=== PATIENT | female | born 1995 | race Caucasian/White ===

== ENCOUNTER 2017-10-18 07:14 | Observation (INO) | payer OTHER ==
[2017-10-18 08:21] LABS: #Eosinphils 0.1 thou/uL (0.0-0.7); #Lymphocytes 1.6 thou/uL (1.20-3.40); #Monocytes 0.5 thou/uL (0.11-0.59); #Neutrophils 5.5 thou/uL (1.40-6.50); %Basophils 0.6 % (0.0-1.0); %Eosinophils 1.8 % (0.0-10.0); %Lymphocytes 20.6 % (21.0-51.0); %Monocytes 5.8 % (0.0-10.0); %Neutrophils 71.1 % (42.0-75.0); Hemoglobin 14.7 g/dL (12.0-16.0); Mean Corpuscular HGB CONC 33.2 g/dL (32.0-36.0); Mean Corpuscular Hemoglobin 29.6 pg (27.0-31.0); Mean Corpuscular Volume 89.1 fL (78.0-98.0); Mean Platelet Volume 7.2 fL (7.4-10.4); Platelet Count 257 thou/uL (130-400); RBC Distribution Width 12.2 % (11.5-14.5); Red Blood Cell (RBC) Count 4.98 mill/uL (4.20-5.40); White Blood Cell (WBC) Count 7.7 thou/uL (4.8-10.8)
[2017-10-18 08:54] LABS: ALT (SGPT) 13 U/L (8-55); AST (SGOT) 14 U/L (5-34); Albumin 4.5 g/dL (3.5-5.0); Alkaline Phosphatase 83 U/L (40-150); Anion Gap 12 mmol/L (10-20); BUN (Urea Nitrogen) 11 mg/dL (7.0-18.7); Bilirubin, Total 0.5 mg/dL (0.2-1.2); Calc. Creatinine Clearance 0 mL/min (70-130); Calcium 9.5 mg/dL (7.8-10.44); Carbon Dioxide 25 mmol/L (22-29); Chloride 105 mmol/L (98-107); Estimated GFR-MDRD 70; Globulin 3.3 g/dL (2.4-3.5); Glucose 86 mg/dL (70-105); Potassium 3.9 mmol/L (3.5-5.1); Protein, Total 7.8 g/dL (6.0-8.3); Sodium 138 mmol/L (136-145)
[2017-10-18 09:44] LABS: BHCG - Serum Negative (NEGATIVE); Pregs Control Background? CLEAR/WHITE (CLR/WHITE); Pregs Control Bar Appear? YES (CONTROL BAR)
[2017-10-18] MEDS ORDERED: Acetaminophen 325 MG TAB PO PRN (10:55)
[2017-10-18] MEDS ORDERED: Ondansetron HCl/PF 4 MG/2 ML Vial IVP PRN (10:55)
--- NOTE | 2017-10-18 10:58 | PDOC.FPRHP ---
- History of Present Illness Chief Complaint: syncope History of Present Illness: Karina Irene is a 21 year old female with a PMH of anxiety who presented to the ED after a syncopal event. Patient woke up this morning and was feeling her normal self. She went to take a shower and while showering, she because acutely anxious, started breathing fast and crying and all of a sudden her vision went black. The next the she remembers is waking up with her looking over her. This fall was witnessed by her and he denies see any seizure like activity and states that the patient fell forward into the wall of the shower and slumped down, she did not hit her head. Patient denies any bowel or bladder incontinence, denies biting tongue. She states that this has never happened before in the past. Does state that she has had more stress and anxiety in her life over the last several months because her mother was diagnosed with pancreatic cancer and . Denies any fever, chills, night sweats, chest pain, palpitations, n/v/d/c, abdominal pain. ED Course: In the ED, she received 1 L NS. - Allergies/Adverse Reactions Allergies Allergy/AdvReac Type Severity Reaction Status Date / Time No Known Drug Allergies Allergy Verified 10/18/17 11:29 - Home Medications Medication Instructions Recorded Confirmed Type Phentermine HCl 37.5 mg PO DAILY 10/18/17 10/18/17 History - History PMHx: Anxiety, Ance PSHx: None FHx: Pancreatic cancer Social: Patient denies smoking or illicit drugs, denies excessive alcohol intake - Review of Systems General: denies: fever/chills, weight/appetite/sleep changes, night sweats, fatigue Eyes: reports: vision changes (vision went black). denies: eye pain ENT: denies: nasal congestion, rhinorrhea Respiratory: denies: cough, congestion, shortness of breath, exercise intolerance Cardiovascular: denies: chest pain, palpitation, edema, paroxysmal nocturnal dyspnea, orthopnea Gastrointestinal: denies: nausea, vomiting, diarrhea, constipation, abdominal pain, GI bleeding Genitourinary: denies: incontinence, dysuria, polyuria, discharge Skin: denies: rashes, lesions, jaundice Musculoskeletal: denies: pain, tenderness, stiffness Neurological: reports: syncope. denies: numbness, seizure, weakness Psychological: reports: anxiety. denies: depression - Vital signs BP: 114/74 HR: 74 RR: 16 Tmax: 97.8 Pox: 97% on RA Wt: 92 kg - Physical Exam Constitutional: NAD, awake, alert and oriented, well developed HEENT: normocephalic and atraumatic, PERRLA, EOMI, conjunctiva clear, no scleral icterus, grossly normal vision, TM's clear and intact, grossly normal hearing, normal nasal mucosa, MMM, oropharynx clear, good dention Neck: supple, FROM, trachea midline, no LAD, no JVD Chest: no-tender to palpation, no lesions Heart: RRR, normal S1/S2, no murmurs/rubs/gallops Lungs: CTAB, no respiratory distress, good air movement, no rales/rhonchi, no wheezing, no retractions Abdomen: soft, non-tender, bowel sounds present, no masses/distention Musculoskeletal: normal structure, normal tone, ROM grossly normal Neurological: no focal deficit, CN II-XII intact Skin: no rash/lesions, good turgor, capillary refill <2 seconds Heme/Lymphatic: no unusual bruising or bleeding, no purpura, no petechia Psychiatric: normal mood and affect, good judgment and insight, intact recent and remote memory FMR H&P: Results - Labs Result Diagrams: 10/18/17 08:13 10/18/17 08:13 Lab results: WBC 7.7 thou/uL (4.8-10.8) 10/18/17 08:13 Hgb 14.7 g/dL (12.0-16.0) 10/18/17 08:13 Hct 44.3 % (36.0-47.0) 10/18/17 08:13 MCV 89.1 fL (78.0-98.0) 10/18/17 08:13 Plt Count 257 thou/uL (130-400) 10/18/17 08:13 Neutrophils % 71.1 % (42.0-75.0) 10/18/17 08:13 Sodium 138 mmol/L (136-145) 10/18/17 08:13 Potassium 3.9 mmol/L (3.5-5.1) 10/18/17 08:13 Chloride 105 mmol/L (98-107) 10/18/17 08:13 Carbon Dioxide 25 mmol/L (22-29) 10/18/17 08:13 BUN 11 mg/dL (7.0-18.7) 10/18/17 08:13 Creatinine 0.99 mg/dL (0.6-1.1) 10/18/17 08:13 Glucose 86 mg/dL (70-105) 10/18/17 08:13 Calcium 9.5 mg/dL (7.8-10.44) 10/18/17 08:13 Total Bilirubin 0.5 mg/dL (0.2-1.2) 10/18/17 08:13 AST 14 U/L (5-34) 10/18/17 08:13 ALT 13 U/L (8-55) 10/18/17 08:13 Alkaline Phosphatase 83 U/L (40-150) 10/18/17 08:13 Serum Total Protein 7.8 g/dL (6.0-8.3) 10/18/17 08:13 Albumin 4.5 g/dL (3.5-5.0) 10/18/17 08:13 - EKG Interpretation EKG: NSR FMR H&P: A/P - Problem List (1) Syncope and collapse Current Visit: Yes Status: Acute Code(s): R55 - SYNCOPE AND COLLAPSE (2) LUIS FERNANDO (acute kidney injury) Current Visit: Yes Status: Acute Code(s): N17.9 - ACUTE KIDNEY FAILURE, UNSPECIFIED (3) Anxiety Current Visit: Yes Status: Chronic Code(s): F41.9 - ANXIETY DISORDER, UNSPECIFIED (4) Acne Current Visit: Yes Status: Chronic Code(s): L70.9 - ACNE, UNSPECIFIED - Plan 1) Syncopal Event: vasovagal vs orthostasis - Place on Tele/Obs - Positive orthostatics in the ED - Low suspicion for seizure with history - Starting fluid replacement with NS @ 150 ml/hr, s/p 1 L NS in ED - Recheck CBC, BMP and orthostatics in AM 2) LUIS FERNANDO-mild - Fluid replacement - Recheck BMP in AM 3) Anxiety: - Could be contributing to symptoms - consider starting SSRI - will not OP f/u 4) Acne - started on doxycycline yesterday - hold for the time CODE STATUS: FULL CODE Disposition/LOS: Place on Tele Obs, anticipate discharge home after stay <48 hours FMR H&P: Upper Level - Pertinent history 21 yo F pmhx JAYLYN, NELSON, and obesity p/w syncopal episode this morning in the shower. Witnessed by . Says that she just slumped over, no head trauma. [place] nauseous and like her vision was going dark prior to episode. No seizure type activity. No incontinence. No neurological deficits. No history of previous episodes. No history of recent illness or other reason for dehydration. States that she had a very stressful day yesterday and has had increased levels of anxiety lately. Her mother recently passed from pancreatic cancer. - Pertinent findings PE Gen: obese, NAD CV: RRR, no m/g/r Lungs: CTAB Ext: no c/c/e Neuro: no focal deficits, CN's 2-12 intact Pulses: BLE intact - Plan Date/Time: 10/18/17 1013 I, Andrés Tyson MD, have evaluated this patient and agree with findings/plan as outlined by internal sales resident. Pertinent changes/additions are listed here. 21 yo CF w/: 1) Syncopal episode: place in observation to telemetry for cardiac monitoring. Likely vasovagal v. orthostatic etiology. EKG normal with exception of elevated QTc. Orthostatics abnl in ER - IVF rehydration and recheck in AM but also suspect strong element of anxiety playing a role here. 2) H/o NELSON: consider starting prophylactics 3) Generalized anxiety disorder: consider starting SSRI 4) Mild LUIS FERNANDO: should improve with fluids, recheck BMP in AM Attending Addendum - Attending Addendum Date/Time: 10/18/17 5980 I personally evaluated the patient and discussed the management with Dr. Brown I agree with the History, Examination, Assessment and Plan documented above with any addition or exceptions noted below.Patient with syncopal episode this am witnessed by in shower at home no head trauma, no seizure activity noted. Patient with orthostasis noted in ER admit for observation hydration and expectant management.
[2017-10-18 12:49] VITALS: BMI 25.2
[2017-10-18] MEDS: Sodium Chloride 0.9% 1,000 ML IV SCH ×2 (12:50→20:47)
[2017-10-19 04:56] LABS: #Eosinphils 0.1 thou/uL (0.0-0.7); #Lymphocytes 2.7 thou/uL (1.20-3.40); #Monocytes 0.6 thou/uL (0.11-0.59); #Neutrophils 5.1 thou/uL (1.40-6.50); %Basophils 0.5 % (0.0-1.0); %Eosinophils 1.6 % (0.0-10.0); %Lymphocytes 30.8 % (21.0-51.0); %Monocytes 7.4 % (0.0-10.0); %Neutrophils 59.6 % (42.0-75.0); Hemoglobin 13.4 g/dL (12.0-16.0); Mean Corpuscular HGB CONC 32.2 g/dL (32.0-36.0); Mean Corpuscular Hemoglobin 28.9 pg (27.0-31.0); Mean Corpuscular Volume 89.8 fL (78.0-98.0); Mean Platelet Volume 7.2 fL (7.4-10.4); Platelet Count 234 thou/uL (130-400); RBC Distribution Width 12.3 % (11.5-14.5); Red Blood Cell (RBC) Count 4.64 mill/uL (4.20-5.40); White Blood Cell (WBC) Count 8.6 thou/uL (4.8-10.8)
[2017-10-19 05:08] LABS: Anion Gap 9 mmol/L (10-20); BUN (Urea Nitrogen) 9 mg/dL (7.0-18.7); Calc. Creatinine Clearance 114 mL/min (70-130); Calcium 8.8 mg/dL (7.8-10.44); Carbon Dioxide 23 mmol/L (22-29); Chloride 111 mmol/L (98-107); Estimated GFR-MDRD 88; Glucose 91 mg/dL (70-105); Potassium 4.1 mmol/L (3.5-5.1); Sodium 139 mmol/L (136-145)
[2017-10-19] MEDS: Sodium Chloride 0.9% 1,000 ML IV SCH ×2 (05:29→06:44)
--- NOTE | 2017-10-19 06:55 | PDOC.FM ---
- Subjective Subjective: Karina Irene seen at bedside this morning. She denies any acute events overnight. She denies any complaints this morning. She denies any fever, chills, chest pain, palpitations. - Objective MAR Reviewed: Yes Vital Signs & Weight: Vital Signs (12 hours) Temp Pulse Resp BP BP BP BP 10/19/17 04:47 98.0 F 91 16 117/58 L 10/18/17 22:51 97.8 F 71 15 119/66 123/74 113/62 10/18/17 19:38 98.2 F 74 16 10/18/17 19:35 97.3 F L 82 12 114/68 Pulse Ox 10/19/17 04:47 98 10/18/17 22:51 99 10/18/17 19:38 10/18/17 19:35 100 Weight Weight 66.678 kg I&O: 10/17/17 10/18/17 10/19/17 06:59 06:59 06:59 Intake Total 2030 Output Total 0 Balance 2030 Result Diagrams: 10/19/17 04:35 10/19/17 04:35 <Jorge Luis Brown - Last Filed: 10/19/17 07:54> - Objective Vital Signs & Weight: Vital Signs (12 hours) Temp Pulse Resp BP BP BP Pulse Ox 10/19/17 08:00 97.9 F 81 16 10/19/17 07:49 97.9 F 81 16 120/56 L 100 10/19/17 04:47 98.0 F 91 16 117/58 L 98 10/18/17 22:51 97.8 F 71 15 119/66 123/74 113/62 99 Weight Weight 66.678 kg I&O: 10/18/17 10/19/17 10/20/17 06:59 06:59 06:59 Intake Total 2030 Output Total 0 Balance 2030 Result Diagrams: 10/19/17 04:35 10/19/17 04:35 <Daniel Gonzáles - Last Filed: 10/19/17 10:37> Phys Exam - Physical Examination Constitutional: NAD HEENT: moist MMs, sclera anicteric Neck: no JVD, supple, full ROM Respiratory: no wheezing, no rales, no rhonchi, clear to auscultation bilateral Cardiovascular: RRR, no significant murmur Gastrointestinal: soft, non-tender Musculoskeletal: no edema, pulses present Neurological: non-focal, normal sensation, moves all 4 limbs Psychiatric: normal affect, A&O x 3 Skin: no rash <Jorge Luis Brown - Last Filed: 10/19/17 07:54> Dx/Plan (1) Syncope and collapse Code(s): R55 - SYNCOPE AND COLLAPSE Status: Acute (2) LUIS FERNANDO (acute kidney injury) Code(s): N17.9 - ACUTE KIDNEY FAILURE, UNSPECIFIED Status: Acute (3) Anxiety Code(s): F41.9 - ANXIETY DISORDER, UNSPECIFIED Status: Chronic (4) Acne Code(s): L70.9 - ACNE, UNSPECIFIED Status: Chronic - Plan Plan: 1) Syncopal Event: vasovagal vs orthostasis - Positive orthostatics in the ED - Low suspicion for seizure with history - Starting fluid replacement with NS @ 150 ml/hr, s/p 1 L NS in ED - Normal labs this morning 2) LUIS FERNANDO-mild - Fluid replacement - Recheck BMP in AM 3) Anxiety: - Could be contributing to symptoms - consider starting SSRI - will not OP f/u 4) Acne - started on doxycycline yesterday - hold for the time <Jorge Luis Brown - Last Filed: 10/19/17 07:54> (1) Syncope and collapse Code(s): R55 - SYNCOPE AND COLLAPSE Status: Acute (2) LUIS FERNANDO (acute kidney injury) Code(s): N17.9 - ACUTE KIDNEY FAILURE, UNSPECIFIED Status: Acute (3) Anxiety Code(s): F41.9 - ANXIETY DISORDER, UNSPECIFIED Status: Chronic (4) Acne Code(s): L70.9 - ACNE, UNSPECIFIED Status: Chronic <Daniel Gonzáles - Last Filed: 10/19/17 10:37> Attending Addendum - Attending Addendum Date/Time: 10/19/17 1036 I personally evaluated the patient and discussed the management with Dr. Brown I agree with the History, Examination, Assessment and Plan documented above with any addition or exceptions noted below.Feeling better home today further evaluation as outpatient regard starting SSRI for anxiety patient prefer to wait at this time. <Daniel Gonzáles - Last Filed: 10/19/17 10:37>
[2017-10-19 08:26] VITALS: BP 120/56; TEMP 97.9
--- NOTE | 2017-10-19 14:23 | EKG ---
Test Reason : SYNCOPE Blood Pressure : / mmHG Vent. Rate : 080 BPM Atrial Rate : 080 BPM P-R Int : 124 ms QRS Dur : 082 ms QT Int : 410 ms P-R-T Axes : -13 048 037 degrees QTc Int : 472 ms Normal sinus rhythm with sinus arrhythmia Normal ECG Confirmed by SISSY JOHNSON, PRESLEY ([id number]), newspaper editor managing LOYDA RODRIGUEZ ([id number]) on 10/19/2017 2:23:18 PM Referred By: SISSY Confirmed By:PRESLEY SHEEHAN MD
--- NOTE | 2017-10-19 22:53 | DIS-2 ---
DATE OF ADMISSION: 10/18/2017 DATE OF DISCHARGE: 10/19/2017 RESIDENT: Jorge Luis Brown M.D. ADMITTING ATTENDING: Dr. Daniel Gonzáles. DISCHARGE ATTENDING: Dr. Daniel Gonzáles. CONSULTATIONS: None. PROCEDURES: None. PRIMARY DIAGNOSES: Syncope and collapse. SECONDARY DIAGNOSES: 1. Anxiety. 2. Acute kidney injury. 3. Acne. DISCHARGE MEDICATIONS: Resume home medications includin. Phentermine 37.5 mg p.o. daily. 2. Doxycycline hyclate 125 mg p.o. b.i.d. HISTORY OF PRESENT ILLNESS AND HOSPITAL COURSE: Karina Echavarria is a 21-year-old female with past me dical history of anxiety, who presented to the ED after syncopal event. Patient woke up at the [facility] of admission stating that she was feeling her normal self. She would take a shower. While shower ing, she became acutely anxious started breathing fast and crying. All of the sudden, her vision lloyd t black. The next thing, she remembers is waking up with her looking over her. The fall was witnessed by her . She denies any seizure-like activity and states that the patient fell for leos into the wall of the shower and slumped down, she did not hit her head. Patient denies any leobardo l or bladder incontinence and denies any tongue biting. States that this has never happened before i n the past. She does state that she has had more anxiety lately in her life due to her mother from pancreatic cancer. Patient denied any fever, chills, night sweats, chest pain, palpitatio ns, nausea, vomiting, diarrhea, constipation, abdominal pain. In the ED, she received one liter of n ormal saline. Vitals on admission were blood pressure 114/74, heart rate 74, respiratory rate 16, te mperature 97.8, pulse ox 97% on room air. In the ED, patient had positive orthostatics prior to rece iving fluids. Initial labs reveal white blood cell count 7.7, hemoglobin 14.7, hematocrit 44.3, plat elets 275. Serum test was negative. Sodium was 138, potassium 3.9, chloride 105, bicarbon ate 25, BUN 11, creatinine 0.99. EKG showed normal sinus rhythm. Patient was admitted for a syncopa l event placed on tele obs. A syncopal event was likely vasovagal in etiology versus orthostasis. P atient have positive orthostatics in the ED and those were normal after she received one liter of nor mal saline and was placed on normal saline at 150 mL an hour. Patient's anxiety could also be contri buting to her symptoms. She did state that she has been much more anxious lately, and there will be periods of time where she becomes acutely anxious and starts breathing more quickly and may be even c rying. Patient did well overnight and had no recurrence of any symptoms. Patient was cleared for elaine collins on 10/19/2017 with instructions to follow up with her primary care provider, Dr. Gonzáles. Nathalie ent understood the plan and was in agreement. DISPOSITION: Stable. After discussion with Dr. Gonzáles, patient is likely consider starting treatment for anxiety, as there could have been a component of anxiety leading to this event; however, patient was volume down, so we did recommend that she continues drinking plenty of fluids. DISCHARGE INSTRUCTIONS: 1. Location: Home. 2. Diet: Regular. 3. Activity: As tolerated. 4. Follow up with primary care provider, Dr. Gonzáles within 1 week.
== END 2017-10-19 11:58 | disposition home or self-care (01) ==
LOC: ERS 07:14 → 2SW 12:28
PROVIDERS: ADMIT Family Medicine; ATTEND Family Medicine
DX: R55 Syncope and collapse (principal); F41.1 Generalized anxiety disorder; N17.9 Acute kidney failure, unspecified; L70.9 Acne, unspecified; Z79.899 Other long term (current) drug therapy
CPT/HCPCS: 36415; 80048; 80053; 84703; 85025; 93005; 96360; 96361; G0378

== ENCOUNTER 2018-04-17 21:13 | Emergency (ER) | payer OTHER ==
[2018-04-17 21:59] LABS: #Eosinphils 0.1 thou/uL (0.0-0.7); #Lymphocytes 1.9 thou/uL (1.20-3.40); #Monocytes 0.5 thou/uL (0.11-0.59); #Neutrophils 7.3 thou/uL (1.40-6.50); %Basophils 0.4 % (0.0-1.0); %Eosinophils 0.7 % (0.0-10.0); %Lymphocytes 19.1 % (21.0-51.0); %Monocytes 4.9 % (0.0-10.0); %Neutrophils 74.9 % (42.0-75.0); Hemoglobin 13.7 g/dL (12.0-16.0); Mean Corpuscular HGB CONC 34.2 g/dL (32.0-36.0); Mean Corpuscular Hemoglobin 30.7 pg (27.0-31.0); Mean Corpuscular Volume 89.8 fL (78.0-98.0); Mean Platelet Volume 7.5 fL (7.4-10.4); Platelet Count 233 thou/uL (130-400); RBC Distribution Width 11.6 % (11.5-14.5); Red Blood Cell (RBC) Count 4.46 mill/uL (4.20-5.40); White Blood Cell (WBC) Count 9.7 thou/uL (4.8-10.8)
[2018-04-17 21:59] LABS: Bilirubin Negative (Negative); Blood, Urine Large (Negative); Clarity CLEAR (Clear); Glucose, Urine (Dipstick) Negative (Negative); Leukocyte Trace (Negative); Nitrite Negative (Negative); Protein, Urine (Dipstick) Negative (Neg-Trace); Urobilinogen 0.2 mg/dL (0.2-1.0)
[2018-04-17 22:00] LABS: Hyaline Casts/LPF 0-3 HYALINE CAST LPF (0-3 Hyaline); Specific Gravity, Urine 1.004 (1.002-1.036); Squamous Epithelial 0-3 HPF (0-3); WBC/HPF 0-3 HPF (0-3)
[2018-04-17 22:01] LABS: Pregnancy Test - Urine (BHCG) POSITIVE (Negative); Pregu Control Background? CLEAR/WHITE (CLR/WHITE); Pregu Control Bar Appear? YES (CONTROL BAR); Specific Gravity 1.004 (1.002-1.036)
[2018-04-17 22:09] LABS: Bacteria/HPF 1+ HPF (None Seen); RBC/HPF 0-3 HPF (0-3)
[2018-04-17 22:21] LABS: ALT (SGPT) 18 U/L (8-55); AST (SGOT) 16 U/L (5-34); Albumin 4.2 g/dL (3.5-5.0); Alkaline Phosphatase 79 U/L (40-150); Anion Gap 10 mmol/L (10-20); BUN (Urea Nitrogen) 7 mg/dL (7.0-18.7); Bilirubin, Total 0.3 mg/dL (0.2-1.2); Calc. Creatinine Clearance 0 mL/min (70-130); Calcium 9.3 mg/dL (7.8-10.44); Carbon Dioxide 26 mmol/L (22-29); Chloride 105 mmol/L (98-107); Estimated GFR-MDRD 89; Globulin 3.1 g/dL (2.4-3.5); Glucose 101 mg/dL (70-105); Potassium 3.7 mmol/L (3.5-5.1); Protein, Total 7.3 g/dL (6.0-8.3); Sodium 137 mmol/L (136-145)
--- NOTE | 2018-04-17 23:20 | ULT ---
OB ULTRASOUND 04/17/18 COMPARISON: None. HISTORY: Light vaginal bleeding for two hours. patient. TECHNIQUE: Multiplanar ruelas scale and color doppler images were obtained in a transabdominal /pelvic ultras ound. Spectral analysis of the doppler waveform of the ovaries were performed. FINDINGS: There is a single live intrauterine . The heart rate is detected at 117 beats per minute. Th is could potentially represent maternal heart rate rather than the fetus. A yolk sac and pole are seen. [place]-rump length of the pole is 0.52 cm which estimates gestational age of 6 weeks, 2 days. No free fluid is see in the pelvis. A dominant follicle is seen in the right ovary measuring 2.1 cm i n size. Normal flow is seen within normal ovaries. IMPRESSION: Single live intrauterine with estimated age of 6 weeks, 2 days. POS: SHA
== END 2018-04-17 23:50 | disposition home or self-care (01) ==
LOC: ERS 21:13
DX: O20.9 Hemorrhage in early pregnancy, unspecified (principal); O99.341 Other mental disorders complicating pregnancy, first trimester; F41.9 Anxiety disorder, unspecified; Z3A.01 Less than 8 weeks gestation of pregnancy
CPT/HCPCS: 36415; 76856; 80053; 81003; 81015; 81025; 84702; 85025; 86850; 86900; 86901; 93976

== ENCOUNTER 2018-06-13 14:43 | Outpatient (CLI) | payer OTHER ==
--- NOTE | 2018-06-13 15:32 | ULT ---
ULTRASOUND WITH DOPPLER DUPLEX VENOUS LOWER EXTREMITY RIGHT: HISTORY: 22-year-old female with right lower extremity edema. TECHNIQUE: Color flow Doppler, spectral waveform analysis of pulsed Doppler, and ruelas-scale imaging with regino arlene and augmentation, were used to evaluate the right common femoral, femoral, popliteal, posterior tibial, and superficial femoral, veins; and the proximal portions of the profunda femoral and greater saphenous, veins. FINDINGS: There is normal compressibility, demonstration of blood flow by color Doppler and pulsed Doppler, and response to augmentation, in all interrogated veins. IMPRESSION: Negative. No deep vein thrombosis in the right lower extremity. jn POS: T[facility]
== END 2018-06-13 14:44 | disposition home or self-care (01) ==
LOC: ULT 14:43
PROVIDERS: ATTEND Advanced Practice Midwife
DX: R60.0 Localized edema (principal)

== ENCOUNTER 2018-06-16 09:19 | Emergency (ER) | payer OTHER ==
[2018-06-16 09:59] LABS: #Eosinphils 0.1 thou/uL (0.0-0.7); #Lymphocytes 1.3 thou/uL (1.20-3.40); #Monocytes 0.4 thou/uL (0.11-0.59); #Neutrophils 7.3 thou/uL (1.40-6.50); %Basophils 0.3 % (0.0-1.0); %Eosinophils 0.8 % (0.0-10.0); %Lymphocytes 14.3 % (21.0-51.0); %Monocytes 4.2 % (0.0-10.0); %Neutrophils 80.4 % (42.0-75.0); Hemoglobin 14.7 g/dL (12.0-16.0); Mean Corpuscular HGB CONC 33.9 g/dL (32.0-36.0); Mean Corpuscular Hemoglobin 30.7 pg (27.0-31.0); Mean Corpuscular Volume 90.4 fL (78.0-98.0); Mean Platelet Volume 7.8 fL (7.4-10.4); Platelet Count 201 thou/uL (130-400); RBC Distribution Width 11.7 % (11.5-14.5); White Blood Cell (WBC) Count 9.1 thou/uL (4.8-10.8)
[2018-06-16 10:20] LABS: ALT (SGPT) 19 U/L (8-55); AST (SGOT) 17 U/L (5-34); Albumin 3.9 g/dL (3.5-5.0); Alkaline Phosphatase 79 U/L (40-150); Anion Gap 14 mmol/L (10-20); BUN (Urea Nitrogen) 5 mg/dL (7.0-18.7); Bilirubin, Total 0.3 mg/dL (0.2-1.2); Calc. Creatinine Clearance 0 mL/min (70-130); Calcium 9.2 mg/dL (7.8-10.44); Carbon Dioxide 20 mmol/L (22-29); Chloride 107 mmol/L (98-107); Estimated GFR-MDRD Greater than 90; Globulin 3.1 g/dL (2.4-3.5); Glucose 82 mg/dL (70-105); Potassium 3.4 mmol/L (3.5-5.1); Sodium 138 mmol/L (136-145)
[2018-06-16] MEDS ORDERED: Acetaminophen 325 MG TAB ONE (11:23)
[2018-06-16 13:23] LABS: Bilirubin Negative (Negative); Blood, Urine Negative (Negative); Clarity CLEAR (Clear); Glucose, Urine (Dipstick) Negative (Negative); Leukocyte Trace (Negative); Nitrite Negative (Negative); Protein, Urine (Dipstick) Negative (Neg-Trace); Specific Gravity, Urine 1.008 (1.002-1.036); Urobilinogen 0.2 mg/dL (0.2-1.0)
[2018-06-16 13:27] LABS: Hyaline Casts/LPF 0-3 HYALINE CAST LPF (0-3 Hyaline); Pathc Cast-AUWi Flag 0.58 (0-2.49); RBC/HPF 0-3 HPF (0-3); WBC/HPF 0-3 HPF (0-3)
[2018-06-16 13:49] LABS: Bacteria/HPF 1+ HPF (None Seen); Renal Epithelial None Seen HPF (0-3); Transitional Epithelial NONE SEEN HPF (0-3)
== END 2018-06-16 13:20 | disposition home or self-care (01) ==
LOC: ERS 09:19
DX: O99.89 Other specified diseases and conditions complicating pregnancy, childbirth and the puerperium (principal); R55 Syncope and collapse; O99.342 Other mental disorders complicating pregnancy, second trimester; F41.9 Anxiety disorder, unspecified; Z3A.15 15 weeks gestation of pregnancy
CPT/HCPCS: 80053; 81003; 81015; 85025; 85379; 93005; 96360

== ENCOUNTER 2018-09-11 22:54 | Day surgery (SDC) | payer OTHER ==
[2018-09-12 00:09] LABS: Bilirubin Negative (Negative); Blood, Urine Negative (Negative); Clarity CLEAR (Clear); Glucose, Urine (Dipstick) Negative (Negative); Leukocyte Negative (Negative); Nitrite Negative (Negative); Protein, Urine (Dipstick) Negative (Neg-Trace); Specific Gravity, Urine 1.005 (1.002-1.036); Urobilinogen 0.2 mg/dL (0.2-1.0)
[2018-09-12 00:12] LABS: Bacteria/HPF None Seen HPF (None Seen); Hyaline Casts/LPF 0-3 HYALINE CAST LPF (0-3 Hyaline); Pathc Cast-AUWi Flag 0.68 (0-2.49); RBC/HPF 0-3 HPF (0-3); Squamous Epithelial 0-3 HPF (0-3); WBC/HPF 0-3 HPF (0-3)
[2018-09-12 00:50] LABS: FFN Internal QC Analyzer PASS (PASS); FFN Internal QC Cassette PASS (PASS); Fetal Fibronectin Negative (Negative)
--- NOTE | 2018-09-12 04:44 | PRG ---
DATE OF SERVICE: 09/11/2018 PRIMARY OB: Ms. Claire Degroot. CHIEF COMPLAINT: Abdominal pains. HISTORY OF PRESENT ILLNESS: The patient is a 22-year-old G1, P0 female with an intrauterine at 27 weeks and 4 days, who is presenting to Labor and Delivery today with complaints of crampy back pain since about 3 p.m. this afternoon. The patient is unable to describe how often she is feeling these pains. She reports that she has had this pain a week ago when she was diagnosed with urinary tract infection and that the pain came back today. She was recently called in another antibiotic course for this urinary tract infection. The patient reports that the urine was cultured and because she is continuing to have symptoms that she was given a course of antibiotics assuming following the sensitivities of that culture. The patient denies any recent intercourse. She denies fever, fall, headache, chest pain, shortness of breath, significant nausea, vomiting, diarrhea, constipation, hip problems, knee problems, muscle weakness, vaginal bleeding, leakage of fluid, urinary urgency. PAST MEDICAL HISTORY: Negative. PAST SURGICAL HISTORY: Negative. ALLERGIES: NO KNOWN DRUG ALLERGIES. MEDICATIONS: 1. vitamins. 2. Amoxicillin. OB LABS: Unavailable. REVIEW OF SYSTEMS: Per HPI. PHYSICAL EXAMINATION: VITAL SIGNS: Blood pressure 109/67, heart rate of 71, respiratory rate 16, and temperature 97.8. GENERAL: She appears to be in no acute distress. She is alert and oriented, cooperative and pleasant to interact with. HEAD: Normocephalic, atraumatic. LUNGS: Clear to auscultation bilaterally. HEART: Has regular rate and rhythm. ABDOMEN: Soft and gravid. EXTREMITIES: Nontender, nonedematous. She has no SI joint tenderness. She does report some tenderness in her sacral region, but reports that deep and not reproducible with palpation of the muscular or bony region in that area. heart tracing performed for abdominal and back crampiness, pain. The fetus is noted to have a baseline in the 130s with moderate long-term variability. Positive accelerations. No decelerations. Tocometer does not show any contraction pattern. fibronectin is negative. Urinalysis does not show any evidence of white blood cells, nitrites, leukocyte esterase, bacteria in the urine. ASSESSMENT AND PLAN: The patient is a 22-year-old female having some abdominal crampiness that may be musculoskeletal pain versus contractions without labor. The patient is on a course of antibiotics currently for urinary tract infection and may have some bladder irritation from that. The patient has been counseled, has been given reassurance and counseled to keep in contact with her primary OB should her symptoms persist or worsen. Fetus has a reactive NST and category 1 tracing. The patient is being discharged to home with labor precautions. Job ID: [id number]
== END 2018-09-12 01:15 | disposition home or self-care (01) ==
LOC: L&D/OP 22:54
PROVIDERS: ATTEND Advanced Practice Midwife
DX: O99.89 Other specified diseases and conditions complicating pregnancy, childbirth and the puerperium (principal); M54.9 Dorsalgia, unspecified; O23.42 Unspecified infection of urinary tract in pregnancy, second trimester; Z3A.27 27 weeks gestation of pregnancy
CPT/HCPCS: 81001; 82731; 99283

== ENCOUNTER 2018-11-07 17:08 | Day surgery (SDC) | payer OTHER ==
[2018-11-07] MEDS ORDERED: hydrALAZINE 20 MG/ML VIAL SLOW IVP PRN (17:31)
[2018-11-07 17:34] VITALS: BP 135/79; TEMP 98.4; BMI 40.5
--- NOTE | 2018-11-07 17:38 | PDOC.LDHP ---
Labor and Delivery H&P Chief complaint: decreased movement HPI: Patient is here for decreased movement. she has not moved over the last two days. Her baby does not move a lot, but this is different. Last night she was telling her that the baby had not moved all day. They were pushing on her and talking to her and then she started moving very slowly, then her movements picked up. Today by lunch she had barely moved and she was thinking "this is not normal." She sent a portal message, but did not get a response until after 4:45. she also complains of a sore throat and feeling like she is getting sick over the past week. She just never gets worse. Denies fever. Denies cough, wheeze, SOB. Denies palpitations, chest pain, diaphoresis. Denies ABD pain or regular contraction. Has some tera steven. Denies vaginal discharge, leaking of fluid, itching, burning. Current gestational age (weeks): 35 Dating criteria: last menstrual period Grav: 1 Para: 0 Current medications: pre- vitamins Allergies/Adverse Reactions: Allergies Allergy/AdvReac Type Severity Reaction Status Date / Time No Known Drug Allergies Allergy Verified 10/18/17 11:29 - Physical Exam Vital signs reviewed and normal: yes (135/79. Temp 98.4.) General: NAD Heart: RRR Lungs: nonlabored breathing Abdomen: gravid Extremeties: trace edema FHT: category 1 (150 baseline, moderate. +Accels. no decels.) [place] contractions every: None - Vaginal Exam cm dilated: 0 (Deferred exam.) - Assessment A: at 35 weeks gestation with decreased movement P: NST BPP ultrasound ordered. Rapid strep test Discharge home is reassuring NST and BPP
--- NOTE | 2018-11-07 18:39 | ULT ---
Biophysical profile: 11/07/2018 COMPARISON: None HISTORY: Decreased movement TECHNIQUE: Multiplanar grayscale sonographic imaging of the gravid uterus obtained. FINDINGS: A single intrauterine gestation is present with a vertex presentation. Placenta is located posteriorly and to the right. heart rate is 168 bpm. Amniotic fluid index is 11.2 cm. The plasma processing centrifuge operator reports a 2 out of 2 score for tone, breathing, movement, and amnio tic fluid. IMPRESSION: Normal 8 out of 8 biophysical profile score.
== END 2018-11-07 19:15 | disposition home or self-care (01) ==
LOC: L&D/OP 17:08
PROVIDERS: ATTEND Advanced Practice Midwife
DX: O36.8130 Decreased fetal movements, third trimester, not applicable or unspecified (principal); Z3A.35 35 weeks gestation of pregnancy; Z79.899 Other long term (current) drug therapy
CPT/HCPCS: 76819; 87081; 87430; 99282

== ENCOUNTER 2018-11-23 02:55 | Day surgery (SDC) | payer OTHER ==
[2018-11-23 03:48] VITALS: BMI 40.9
[2018-11-23] MEDS ORDERED: hydrALAZINE 20 MG/ML VIAL SLOW IVP PRN (04:20)
[2018-11-23] MEDS ORDERED: diphenhydrAMINE 50 MG/ML VIAL IVP SCH (04:30)
[2018-11-23] MEDS ORDERED: Metoclopramide HCl 10 MG/2 ML VIAL IVP PRN (05:27)
[2018-11-23] MEDS ORDERED: Metoclopramide HCl 10 MG/2 ML VIAL IVP SCH (05:30)
[2018-11-23] MEDS: Lactated Ringer's 1,000 ML IV SCH ×2 (05:40→06:20)
[2018-11-23 05:56] LABS: Creatinine, Urine Less than 20.00 mg/dL (47-110); Protein, Urine Random Quant Less than 10 mg/dL (1-14)
--- NOTE | 2018-11-23 07:07 | PDOC.LDHP ---
Labor and Delivery H&P Chief complaint: other (Headache) HPI: 22 yo F @ 37.6 presents for headache which started earlier in the day. Pt reports pounding headache with photophobia. Headache is not relieved by tylenol. Pt reports occasional elevated BP during care and highest 140. She currently reports headache, denies changes in vision, no CP, SOB, epigastric or RUQ pain. Reports pos movement. No vaginal discharge, bleeding or LOF. Current gestational age (weeks): 37 (37.6) Due date: 12/08/18 Dating criteria: last menstrual period Grav: 1 Para: 0 Current complications: none Abnormal US findings: No Current medications: pre- vitamins Previous surgical history: none Allergies/Adverse Reactions: Allergies Allergy/AdvReac Type Severity Reaction Status Date / Time No Known Drug Allergies Allergy Verified 11/07/18 17:53 Social history: none - Physical Exam Vital signs reviewed and normal: yes General: NAD, resting Heart: RRR Lungs: CTAB Abdomen: NTTP Extremeties: no edema FHT: category 1 (baseline 140), variability present [place] contractions every: none - OB Labs Blood type: unknown RH: unknown Antibody Screen: unknown HIV: unknown RPR: unknown HEPSAg: unknown 1 hour GCT: unknown GBS: unknown - Plan -: 1) Headache: - given history of elevated BP will check urine pr/cr - no elevated pressures here - will rx 1 liter LR bolus in addition to benadryl and reglan for rx of migraine Addendum: After fluids and medication pt reports resolution of headache, plan for DC to home with OP f/u with primary ob provider. Ur Pr/Cr WNL. Addendum - Attending - Attending Attestation Date/Time: 11/24/18 1044 I personally evaluated the patient and discussed the management with Dr. Jaramillo I agree with the History, Examination, Assessment and Plan documented above with any addition or exceptions noted below. reports H/A X 1day unresolved with tylenol. +ligh sensativity, +nausea. no history of migraines vitals-110/67 90 20 98.5 fht 120s with ltv +accel, no decel [place] irregular contractions pt treated with migraine protocol with benadryl and reglan. - headached resolved after the second dose. d/c home. f.u with Ms lai chacon as scheduled
== END 2018-11-23 07:42 | disposition home or self-care (01) ==
LOC: L&D/OP 02:55
PROVIDERS: ATTEND Obstetrics & Gynecology
DX: O99.89 Other specified diseases and conditions complicating pregnancy, childbirth and the puerperium (principal); R51 Headache; H53.149 Visual discomfort, unspecified; Z3A.37 37 weeks gestation of pregnancy
CPT/HCPCS: 82570; 84156; 96360; 96361; 96375; 99283; J1200; J2765

== ENCOUNTER 2018-11-28 13:31 | Day surgery (SDC) | payer OTHER ==
[2018-11-28 14:19] VITALS: BP 135/87; TEMP 98.5; BMI 41.1
[2018-11-28 14:57] LABS: Amnisure Internal Control QC ACCEPTABLE (ACCEPTABLE); Amnisure Test No Membranes Rupture (No Rupture)
[2018-11-28] MEDS ORDERED: hydrALAZINE 20 MG/ML VIAL SLOW IVP PRN (20:44)
--- NOTE | 2018-11-28 21:49 | PRG ---
DATE OF SERVICE: 11/28/2018 PRIMARY OB: Claire Degroot CNM CHIEF COMPLAINT: Leakage of fluid. HISTORY OF PRESENT ILLNESS: The patient is a 22-year-old G1, P0 female with an intrauterine at 38 weeks and 4 days, who reports leakage of fluid that began the day prior to presentation at about 5 o'clock. She reports that she had some leaking and placed a pain liner. She reports that the leaking was enough to get her clothes wet through the pain liner and then stopped and had not had any leaking until about 12 o'clock on the day of presentation, and again had some more leaking on pain liner. The patient denies any more leaking since that time. She presented on recommendation of her doctor's office for evaluation. The patient denies any vaginal bleeding or uterine contractions. She denies any persistent leakage of fluid or change in odor or discharge. She denies any fever, fall, headache, chest pain, shortness of breath, nausea, vomiting, diarrhea, constipation, hip problems, knee problems, muscle weakness, vaginal bleeding, urinary urgency or frequency. PAST MEDICAL HISTORY: Negative. PAST SURGICAL HISTORY: Negative. ALLERGIES: NO KNOWN DRUG ALLERGIES. MEDICATIONS: vitamins. OB LABS: Unavailable at the time of dictation. REVIEW OF SYSTEMS: Per HPI. SOCIAL HISTORY: Denies drug, alcohol, or tobacco use. PHYSICAL EXAMINATION: VITAL SIGNS: Blood pressure 135/87, heart rate of 89, respiratory rate 18, saturating 98% on room air, and temperature 98.5. GENERAL: She appears to be in no acute distress. She is alert, oriented, cooperative, and pleasant to interact with. HEAD: Normocephalic, atraumatic. LUNGS: Clear to auscultation bilaterally. HEART: Regular rate and rhythm. ABDOMEN: Soft, gravid, nontender. EXTREMITIES: Nontender and nonedematous. VULVA: Without masses, lesions, or erythema. Vagina is moist with granular discharge. Cervix is visibly closed. There is no pooling on Valsalva or coughing. Cervical exam per nursing staff is fingertip thick and high. heart tracing shows the fetus with a baseline in the 140s with moderate long-term variability, positive 15 x 15 accelerations, no decelerations. The patient does show some contractions. The patient feels that are mild. AmniSure test is negative. VPIII came back positive for Gardnerella, negative for yeast or Trichomonas. ASSESSMENT AND PLAN: The patient is a 22-year-old G1, P0 female with an intrauterine at 38 weeks and 4 days, who is presenting with intermittent leakage of fluid with no evidence of rupture of membranes at this time. She does have a positive screen for Gardnerella, which could explain her increased discharge she has been experiencing. The patient has been given term labor precautions and instructions to seek medical attention should her leaking persist or worsen. VPIII results came back after the patient had already discharged home. The patient has been given instructions to call back in a few hours to receive to get her results. I will be submitting Metrogel antibiotic for treatment should the patient desire treatment. I will be contacting the patient with these findings. Fetus has a category 1 tracing and reactive NST. There is no evidence of labor or infection or rupture of membranes. Job ID: [id number]
== END 2018-11-28 16:25 | disposition home or self-care (01) ==
LOC: L&D/OP 13:31
PROVIDERS: ATTEND Advanced Practice Midwife
DX: O99.89 Other specified diseases and conditions complicating pregnancy, childbirth and the puerperium (principal); N89.8 Other specified noninflammatory disorders of vagina; Z3A.38 38 weeks gestation of pregnancy
CPT/HCPCS: 84112; 87480; 87510; 87660

== ENCOUNTER 2023-09-16 14:39 | Emergency (ER) | payer BC ==
[2023-09-16] MEDS ORDERED: Famotidine/PF 20 mg/2ml Vial ONE (14:59)
[2023-09-16] MEDS ORDERED: diphenhydrAMINE 50 MG/ML VIAL ONE (14:59)
[2023-09-16] MEDS ORDERED: methylPREDNISolone Sod Succ/PF 125 MG/2 ML VIAL ONE (14:59)
[2023-09-16 15:21] LABS: #Basophils 0.05 10x3/uL (0.0-0.2); %Basophils 0.4 % (0.0-1.0); %Eosinophils 13.1 % (0.0-10.0); %Lymphocytes 12.9 % (21.0-51.0); %Monocytes 4.4 % (0.0-10.0); Hematocrit 45.5 % (36.0-47.0); Hemoglobin 15.6 g/dL (12.0-16.0); Mean Corpuscular HGB CONC 34.3 g/dL (32.0-36.0); Mean Corpuscular Hemoglobin 29.9 pg (27.0-31.0); Mean Corpuscular Volume 87.2 fL (78.0-98.0); Mean Platelet Volume 9.6 fL (7.4-10.4); Platelet Count 314 10x3/uL (130-400); RBC Distribution Width 12.6 % (11.5-14.5); Red Blood Cell (RBC) Count 5.22 mill/uL (4.20-5.40)
[2023-09-16 15:28] LABS: BHCG - Serum Negative (NEGATIVE); Pregs Control Background? CLEAR/WHITE (CLR/WHITE); Pregs Control Bar Appear? YES (CONTROL BAR)
[2023-09-16 15:36] LABS: ALT (SGPT) 14 U/L (8-55); AST (SGOT) 16 U/L (5-34); Alkaline Phosphatase 111 U/L (40-110); Anion Gap 17 mmol/L (10-20); BUN (Urea Nitrogen) 17 mg/dL (7.0-18.7); Bilirubin, Total 0.5 mg/dL (0.2-1.2); Calc. Creatinine Clearance 0 mL/min (70-130); Calcium 9.5 mg/dL (7.8-10.44); Carbon Dioxide 24 mmol/L (22-29); Chloride 108 mmol/L (98-107); Estimated GFR 104; Globulin 3.8 g/dL (2.4-3.5); Glucose 81 mg/dL (70-105); Magnesium 1.9 mg/dL (1.6-2.6); Potassium 3.5 mmol/L (3.5-5.1); Protein, Total 7.8 g/dL (6.0-8.3); Sodium 145 mmol/L (136-145)
[2023-09-17 11:25] LABS: Syphilis Antibody Nonreactive (Nonreactive); Syphilis Antibody Index 0.05 S/CO (<1.00 Non-Reactive)
== END 2023-09-16 16:40 | disposition home or self-care (01) ==
LOC: ERS 14:39
DX: T78.40XA Allergy, unspecified, initial encounter (principal)
CPT/HCPCS: 36415; 80053; 83735; 84703; 85025; 86780; 96361; 96374; 96375; J1200; J2930; S0028